=== PATIENT | male | born 1945 | race Caucasian/White ===

== ENCOUNTER → 2017-11-17 | Outpatient (CLI) | payer MEDICARE, OTHER ==
[~2017-11-17] MED LIST: ASPIR 8181 MG PO; FLOMAX0.4 MG PO; HYTRIN PO; LISINOPRIL10 MG PO; MEN'S MULTI-VI1 EACH PO; METOPROLOL SUCC50 MG PO
--- NOTE | 2017-11-17 14:16 | Diagnostic Imaging Report ---
PROCEDURE:US RETROPERITONEAL ( KIDNEY ). COMPARISON:Renal ultrasound from 11/08/2016 INDICATIONS:Cyst Of Kidney TECHNIQUE: Simons-scale and color sonographic images of the bilateral kidneys and bladder where obtained in transverse and longitudinal planes. FINDINGS: RIGHT KIDNEY: 11.2 cm, cortex 2.2 cm Cysts: None Solid masses: None Stones: None Hydronephrosis: None Echogenicity: Normal LEFT KIDNEY: 11.2 cm, cortex 2.1 cm Cysts: A simple cyst in the right superior pole measures 3.3 x 2.8 x 2.3 (previously 2.7 x 2.5 cm). Another simple cyst in the left superior pole measures 2.6 x 2.0 x 2.4 cm (previously 1.0 x 1.1 x 1.4 cm) Solid masses: None Stones: None Hydronephrosis: None Echogenicity: Normal Bladder: Unremarkable Prostate: No prostate gland is visualized. CONCLUSION: Simple left renal cysts, one of which is larger than before. No solid components or septations. Dictated by: Keith Garay M.D. on 11/17/2017 at 14:21 Electronically approved by: Keith Garay M.D. on 11/17/2017 at 14:21
== END ==
LOC: US 12:56
PROVIDERS: ATTEND Urology
DX: N28.1 Cyst of kidney, acquired (principal)
CPT/HCPCS: 76770

== ENCOUNTER → 2018-10-01 | Outpatient (CLI) | payer MEDICARE, OTHER ==
--- NOTE | 2018-10-01 17:03 | Diagnostic Imaging Report ---
EXAM: Renal Ultrasound INDICATION: ^CYST OF KIDNEY COMPARISON: Renal ultrasound 11/17/2017 TECHNIQUE: Transverse and longitudinal images of the kidneys and bladder were obtained. FINDINGS: Right Kidney: Size: 11.5 cm, right renal cortex 1.8 cm. Appearance: Normal echogenicity. Collecting system: No hydronephrosis Stones: None Cyst/Mass: None Left Kidney: Size: 11.3 cm, left renal cortex 1.7 cm. Appearance: Normal echogenicity. Collecting system: No hydronephrosis Stones: None Cyst/Mass: 3.1 x 2.8 x 2.8 cm cystic, anechoic lesion in the superior aspect (previously measured 3.3 x 2.8 x 2.3 cm). Bladder: No focal lesions. Ureteral jets were not visualized. IMPRESSION: 1. Normal bilateral renal size and echogenicity. No stones, hydronephrosis or obstruction. 2. Relatively stable size and appearance of 3.1 cm simple cyst in the superior pole of the left kidney. Signed by: Dr. Milton Cox M.D. on 10/01/2018 5:00 PM
== END ==
LOC: US 15:30
PROVIDERS: ATTEND Urology
DX: N28.1 Cyst of kidney, acquired (principal)
CPT/HCPCS: 76770

== ENCOUNTER 2018-11-03 05:00 | Inpatient (IN) | payer MEDICARE, OTHER ==
--- NOTE | 2018-11-02 10:17 | Diagnostic Imaging Report ---
EXAMINATION: CHEST 2 VIEWS INDICATION: Pre-operative COMPARISON: None FINDINGS: TUBES and LINES: None. LUNGS: The lung volumes are normal. No focal consolidation or pulmonary edema. PLEURA: No pleural effusion or pneumothorax. HEART AND MEDIASTINUM: The cardiomediastinal silhouette is normal in size and contour. BONES AND SOFT TISSUES: No acute fracture or dislocation. Mild degenerative changes of the visualized spine. UPPER ABDOMEN: No free air under the diaphragm. IMPRESSION: No focal pneumonia or pulmonary edema. Signed by: Daren Finley MD on 11/02/2018 10:12 AM
[2018-11-02 11:24] LABS: ANION GAP 11.9 mmol/L (8-16); CALCIUM 8.8 mg/dL (8.4-10.2); CREATININE, SERUM 1.34 mg/dL (0.72-1.25); POTASSIUM 3.9 mmol/L (3.5-5.1)
[2018-11-02 11:26] LABS: BASOPHILS % 0.3 % (0.0-1.0); EOSINOPHILS # (AUTO) 0.2 (0.0-0.4); HEMATOCRIT 40.6 % (38.2-49.6); HEMOGLOBIN 12.9 g/dL (14.0-18.0); LYMPHOCYTES # (AUTO) 1.8 (1.0-3.2); LYMPHOCYTES % 22.6 % (18.0-39.1); MEAN CORPUSCULAR HEMOGLOBIN 28.5 pg (28-32); MEAN CORPUSCULAR HGB CONC 31.8 g/dL (31-35); MEAN CORPUSCULAR VOLUME 89.6 fL (81-99); MONOCYTES # (AUTO) 0.6 (0.2-0.8); MONOCYTES % 7.5 % (4.4-11.3); NEUTROPHILS # (AUTO) 5.2 (2.1-6.9); NEUTROPHILS % 66.2 % (38.7-80.0); PLATELET COUNT 210 x10e3/uL (140-360); RED BLOOD COUNT 4.53 x10e6/uL (4.3-5.7); RED CELL DISTRIBUTION WIDTH 13.8 % (11.7-14.4)
[~2018-11-03] VITALS: Ht 170.2 cm; Wt 124.7 kg
[~2018-11-03 05:00] MED LIST changes: +LASIX40 MG PO; +LISINOPRIL40 MG PO
--- OUTSIDE RECORDS SUMMARY | 2018-11-03 05:12 | XMS REPORT ---
[facility] Address Unknown Phone Unavailable Care Team Providers Care Dietitian Chief Name Role Phone FAMILIA LEVIN Unavailable Unavailable Problems This patient has no known problems. Allergies, Adverse Reactions, Alerts This patient has no known allergies or adverse reactions. Medications This patient has no known medications. Results Test Description Test Time Test Comments Text Results Atomic Results Result Comments CHEST 2 VIEWS 2018-11-02 10:12:00 [place] [address] Patient Name: ELI DE LEÓN MR #: [id number] : 1945 Age/Sex: 73/M Req #: [id number] [facility] [place] Ordered by: FAMILIA LEVIN MD Report #: [id number] Location: OR Room/Bed: Procedure: [id number] DX/CHEST 2 VIEWS Exam Date: 11/02/18 Exam Time: 950 REPORT STATUS: Signed EXAMINATION: CHEST 2 VIEWS INDICATION: Pre-operative COMPARISON: None FINDINGS: TUBES and LINES: None. LUNGS: The lung volumes are normal. No focal consolidation or pulmonary edema. PLEURA: No pleural effusion or pneumothorax. HEART AND MEDIASTINUM: The cardiomediastinal silhouette is normal in size and contour. BONES AND SOFT TISSUES: No acute fracture or dislocation. Mild degenerative changes of the visualized spine. UPPER ABDOMEN: No free air under the diaphragm. IMPRESSION: No focal pneumonia or pulmonary edema. Signed by: Olesya Bains MD on 11/02/2018 10:12 AM Dictated By: OLESYA BAINS MD 1012 Transcribed By: JOÃO on 11/02/18 1012 COPY TO: FAMILIA LEVIN MD RENAL RETROPERITONEAL COMP 2018-10-01 16:58:00 [place] [address] Patient Name: ELI DE LEÓN MR #: [id number] : 1945 Age/Sex: 73/M Req #: [id number] Adm Physician: Ordered by: FAMILIA LEVIN MD Report #: [id number] Location: Room/Bed: Procedure: [id number] US/US RENAL RETROPERITONEAL COMP Exam Date: 10/01/18 Exam Time: 1616 REPORT STATUS: Signed EXAM: Renal Ultrasound INDICATION: CY ST OF KIDNEY COMPARISON: Renal ultrasound 11/17/2017 TECHNIQUE: Transverse and longitudinal images of the kidneys and bladder were obtained. FINDINGS: Right Kidney: Size: 11.5 cm, right renal cortex 1.8 cm. Appearance: Normal echogenicity. Collecting system: No hydronephrosis Stones: None Cyst/Mass: None Left Kidney: Size: 11.3 cm, left renal cortex 1.7 cm. Appearance: Normal echogenicity. Collecting system: No hydronephrosis Stones: None Cyst/Mass: 3.1 x 2.8 x 2.8 cm cystic, anechoic lesion in the superior aspect (previously measured 3.3 x 2.8 x 2.3 cm). Bladder: No focal lesions. Ureteral jets were not visualized. IMPRESSION: 1. Normal bilateral renal size and echogenicity. No stones, hydronephrosis or obstruction. 2. Relatively stable size and appearance of 3.1 cm simple cyst in the superior pole of the left kidney. Signed by: Dr. Gwen Cox M.D. on 10/01/2018 5:00 PM Dictated By: GWEN LUCIANO MD 99 Transcribed By: JOÃO on 10/01/181699 COPY TO: FAMILIA LEVIN MD US RENAL RETROPERITONEAL COMP 2017-11-17 14:21:00 [place] [address] Patient Name: ELI DE LEÓN MR #: [id number] : 1945 Age/Sex: 72/M Req #: [id number] Adm Physician: Ordered by: FAMILIA LEVIN MD Report #: [id number] Location: Room/Bed: Procedure: [id number] US/US RENAL RETROPERITONEAL COMP Exam Date: Exam Time: REPORT STATUS: Signed PROCEDURE: US RETROPERITONEAL ( KIDNEY ). COMPARISON: Renal ultrasound from 11/08/2016 INDICATIONS: Cyst Of Kidney TECHNIQUE: Simons-scale and color sonographic images of the bilateral kidneys and bladder where obtained in transverse and longitudinal planes. FINDINGS: RIGHT KIDNEY: 11.2 cm, cortex 2.2 cm Cysts: None Solid masses: None Stones: None Hydronephrosis: None Echogenicity: Normal LEFT KIDNEY: 11.2 cm, cortex 2.1 cm Cysts: A simple cyst in the right superior pole measures 3.3 x 2.8 x 2.3 (previously 2.7 x 2.5 cm). Another simple cyst in the left superior pole measures 2.6 x 2.0 x 2.4 cm (previously 1.0 x 1.1 x 1.4 cm) Solid masses: None Stones: None Hydronephrosis: None Echogenicity: Normal Bladder: Unremarkable Prostate: No prostate gland is visualized. CONCLUSION: Simple left renal cysts, one of which is larger than before. No solid components or septations. Dictated by: Ventura Garay M.D. on 11/17/2017 at 14:21 Electronically approved by: Ventura Garay M.D. on 11/17/2017 at 14:21 Dictated By: VENTURA GARAY MD 1421 Transcribed By: JUAQUIN on 0 11/17/17 1421 COPY TO: FAMILIA LEVIN MD
[2018-11-03] MEDS ORDERED: GENTAMICIN 80MG/NS 100 ML 200 ML IV ONE (05:41)
[2018-11-03] MEDS ORDERED: CEFTRIAXONE SOD 1 GM/NS 50 ML 100 ML IV ONE (05:41)
[2018-11-03] MEDS ORDERED: B&O 60MG R/S 60 MG SUPP PR ONE (06:44)
[2018-11-03] MEDS ORDERED: IOPAMIDOL 610MG/1ML 300 MG/ML VIAL IV ONE (06:44)
[2018-11-03] MEDS ORDERED: CEFTRIAXONE SOD 1 GM/NS 50 ML 50 ML IV SCH (10:30)
[2018-11-03] MEDS ORDERED: NALOXONE HCL INJ 0.4 MG/ML AMP IV PRN (10:30)
[2018-11-03] MEDS ORDERED: ACETAMINOPHEN/CODEINE 300MG - 30MG TAB PO PRN (10:30)
[2018-11-03] MEDS ORDERED: MORPHINE SULFATE 1 MG/ML 30ML PCA IV PRN (10:30)
[2018-11-03] MEDS ORDERED: ONDANSETRON HCL INJ 2MG/ML 2ML 2 MG/ML VIAL IV PRN (10:30)
[2018-11-03] MEDS ORDERED: DIPHENHYDRAMINE HCL 25 MG CAP PO PRN (10:30)
[2018-11-03] MEDS ORDERED: B&O 60MG R/S 60 MG SUPP PR PRN (10:45)
--- NOTE | 2018-11-03 10:55 | NUR ---
RECEIVED REPORT FROM [facility] IN PACU AWAITING FOR PT TO ARRIVE TO FLOOR
[2018-11-03 11:15] VITALS: BP_SYST 147; BP_SYST 148; BP_DIAS 76
--- NOTE | 2018-11-03 11:15 | NUR ---
RECEIVED PT TO FLOOR AA0X3. IS AT BEDSIDE PT IS IN NO S.S DISTRESS, REPORTS SPAMS TO BLADDERS THAT AT THIS TIME ARE TOLERABLE PAIN MEDICATION OFFERED. PT DENIES NEEDING REEDER ON TRACTION AND ON CBI DRAINING PINK/RED URINE. RIGHT HAND 20 G PATENT AND INTACT WILL CONTINUE TO MONITOR PT AT THIS TIME SIDE RAILSX2, BED WHEELS LOCKED, CALL LIGHT IS WITHIN EASY REACH INSTRUCTED TO CALL FOR ASSISTANCE IF NEEDED
[2018-11-03] MEDS: D5.45%NS/KCL 20MEQ 1,000 ML IV SCH ×2 (11:54→19:00)
[2018-11-03 12:03] VITALS: BP 148/76
[2018-11-03] MEDS: PHENAZOPYRIDINE HCL 100 MG TAB PO SCH ×2 (13:05→17:06)
[2018-11-03] MEDS ORDERED: MIDAZOLAM HCL 2 MG/2 ML VIAL ONE (14:02)
[2018-11-03] MEDS ORDERED: FENTANYL CITRATE/PF 100MCG/2 ML INJ ONE (14:02)
[2018-11-03 14:15] LABS: BASOPHILS % 0.1 % (0.0-1.0); HEMATOCRIT 45.8 % (38.2-49.6); HEMOGLOBIN 14.1 g/dL (14.0-18.0); LYMPHOCYTES # (AUTO) 0.8 (1.0-3.2); LYMPHOCYTES % 7.4 % (18.0-39.1); MEAN CORPUSCULAR HEMOGLOBIN 27.9 pg (28-32); MEAN CORPUSCULAR HGB CONC 30.8 g/dL (31-35); MEAN CORPUSCULAR VOLUME 90.5 fL (81-99); MONOCYTES # (AUTO) 0.2 (0.2-0.8); MONOCYTES % 1.8 % (4.4-11.3); NEUTROPHILS # (AUTO) 10.2 (2.1-6.9); PLATELET COUNT 218 x10e3/uL (140-360); RED BLOOD COUNT 5.06 x10e6/uL (4.3-5.7); RED CELL DISTRIBUTION WIDTH 13.8 % (11.7-14.4)
[2018-11-03 14:39] LABS: ANION GAP 13.5 mmol/L (8-16); CREATININE, SERUM 1.3 mg/dL (0.72-1.25); POTASSIUM 4.5 mmol/L (3.5-5.1)
[2018-11-03] MEDS ORDERED: SEVOFLURANE INHAL SOLN 250 ML PEN BTL ONE (14:57)
[2018-11-03] MEDS ORDERED: ONDANSETRON HCL INJ 2MG/ML 2ML 2 MG/ML VIAL ONE (14:57)
[2018-11-03] MEDS ORDERED: NEOSTIGMINE 5 MG/5ML SYR ONE (14:57)
[2018-11-03] MEDS ORDERED: PROPOFOL IV EMULSION 10 MG/ML 20 ML VIAL ONE (14:57)
[2018-11-03] MEDS ORDERED: DEXAMETHASONE SOD PHOS INJ 4 MG/ML VIAL ONE (14:57)
[2018-11-03] MEDS ORDERED: GLYCOPYRROLATE INJ 1MG/ 5 ML SYR ONE (14:57)
[2018-11-03] MEDS ORDERED: PHENYLEPHRINE HCL 1% 10 MG/ML VIAL ONE (14:57)
[2018-11-03] MEDS ORDERED: EPHEDRINE SULFATE INJ 50 MG/10 ML SYR ONE (14:57)
[2018-11-03] MEDS ORDERED: LIDOCAINE HCL 2% LOCAL INJ 5 ML SDV VIAL INJ ONE (14:57)
[2018-11-03] MEDS ORDERED: ROCURONIUM BROMIDE 10 MG/ML 5ML VIAL ONE (14:57)
[2018-11-03] MEDS: OXYBUTYNIN CHLORIDE 5 MG TAB PO SCH ×2 (15:03→20:44)
[2018-11-03 16:05] VITALS: BP 135/73
[2018-11-03] MEDS: DOCUSATE SODIUM 100 MG CAP PO SCH (17:06)
[2018-11-03 19:58] VITALS: BP 113/70
[2018-11-03 20:44] VITALS: BP 113/70
[2018-11-04 00:17] VITALS: BP 94/51
[2018-11-04] MEDS: D5.45%NS/KCL 20MEQ 1,000 ML IV SCH (02:24)
[2018-11-04 06:20] LABS: BASOPHILS % 0.3 % (0.0-1.0); EOSINOPHILS # (AUTO) 0.2 (0.0-0.4); EOSINOPHILS % 1.6 % (0.0-6.0); HEMATOCRIT 39.5 % (38.2-49.6); HEMOGLOBIN 12.2 g/dL (14.0-18.0); LYMPHOCYTES # (AUTO) 1.7 (1.0-3.2); LYMPHOCYTES % 13.6 % (18.0-39.1); MEAN CORPUSCULAR HEMOGLOBIN 28.1 pg (28-32); MEAN CORPUSCULAR HGB CONC 30.9 g/dL (31-35); MONOCYTES # (AUTO) 0.9 (0.2-0.8); MONOCYTES % 6.7 % (4.4-11.3); NEUTROPHILS # (AUTO) 9.8 (2.1-6.9); NEUTROPHILS % 77.2 % (38.7-80.0); PLATELET COUNT 187 x10e3/uL (140-360); RED BLOOD COUNT 4.34 x10e6/uL (4.3-5.7); RED CELL DISTRIBUTION WIDTH 13.9 % (11.7-14.4)
[2018-11-04 06:45] LABS: ANION GAP 9.4 mmol/L (8-16); CALCIUM 8.4 mg/dL (8.4-10.2); CREATININE, SERUM 1.21 mg/dL (0.72-1.25); POTASSIUM 4.4 mmol/L (3.5-5.1)
--- NOTE | 2018-11-04 07:10 | NUR ---
PT RESTING IN BED AA0X3 PT IS IN NO S/S OF DISTRESS, DENIES PAIN PT CBI RUNNING . CLEAR ORANGE URINE NOTED ON BAG CBI RUNNING AT SLOW PACE IV TO THE HAND PATENT DRY AND INTACT WILL CONTINUE TO MONITOR PT CLOSELY\ SIDE RAILSX2 ,BED WHEELS LOCKED ,CALL LIGHT IS WITHIN EASY REACH INSTRUCTED TO CALL FOR ASSISTANCE IF NEEDED
[2018-11-04 07:49] VITALS: BP 100/58
[2018-11-04 08:04] VITALS: BP 100/58
[2018-11-04] MEDS: PHENAZOPYRIDINE HCL 100 MG TAB PO SCH (08:04)
[2018-11-04] MEDS: DOCUSATE SODIUM 100 MG CAP PO SCH (08:04)
[2018-11-04] MEDS: OXYBUTYNIN CHLORIDE 5 MG TAB PO SCH (08:04)
[2018-11-04] MEDS ORDERED: ONDANSETRON HCL 4 MG ORAL DISINTEGRATING TAB PO PRN (10:00)
[2018-11-04] MEDS ORDERED: TYLENOL # 31 EA PO (10:24)
[2018-11-04] MEDS ORDERED: LEVAQUIN500 MG PO (10:24)
[2018-11-04] MEDS ORDERED: OXYBUTYNIN CHLOR5 MG PO (10:24)
--- NOTE | 2018-11-04 10:45 | NUR ---
DC INSTRUCTIONS AND PRESCRIPTIONS GIVEN. PT VERBALIZED UNDERSTANDING IV DC PRESSURE DRESSING APPLIED AND TAPED REEDER DC FROM IRRIGATION PLUG APPLIED PT GIVEN SUPPLIES TO IRRIGATE PRN AT HOME AND LEG BAG IF NEEDED UNDERSTANDS TO FOLLOW UP WITH MD LEVIN IN ONE MONTH PT IS NOW OFF UNIT TO HOME VIA WHEEL CHAIR
--- NOTE | 2018-11-04 15:07 | Discharge Summary ---
JIG AND FIXTURE MAKER: Dr. Trung Kearns. FINAL DIAGNOSIS: Benign prostatic hyperplasia with chronic renal insufficiency status post cystoscopy, dilatation and TURP. Procedure done by Dr. Trung Kearns. HOSPITAL COURSE: The patient is a 73-year-old male, multiple chronic medical problem, obesity with enlarged prostate, now status post procedures as mentioned. Please review the operative note. The patient is stable. He is going to go home today with a Rasmussen catheter. The patient was discharged home to resume his home medication, hold off aspirin or Plavix until everything is healed, Rasmussen catheter out. Discussed with the patient at length. He will take Levaquin 250 mg daily for seven days and Tylenol No. 3 p.r.n. for pain. Resume metoprolol. The patient is stable, discharged home today with Rasmussen catheter. The patient to follow with Dr. Trung Kearns as instructed. MD EMBER Delacruz/KISHOR /[id number]
--- NOTE | 2019-01-12 06:38 | Operative Report ---
DATE OF PROCEDURE: 11/03/2018 SURGEON: Trung Kearns MD PREOPERATIVE DIAGNOSES: 1. Obstructive benign prostatic hyperplasia. 2. Chronic renal insufficiency. POSTOPERATIVE DIAGNOSES: 1. Obstructive benign prostatic hyperplasia. 2. Chronic renal insufficiency. 3. Urethral stricture disease. OPERATIONS PERFORMED: 1. Cystourethroscopy with calibration and dilation of urethral stricture (separate procedure performed with separate scope for the diagnosis of the stricture). 2. Cystourethroscopy with bilateral ureteral catheterization and retrograde ureteropyelography (separate procedure performed to evaluate the upper tract in light of the chronic renal insufficiency. 3. Interpretation of retrograde ureteropyelography. 4. Cystourethroscopy with transurethral resection of the prostate (separate staged procedure performed with the plasma button electrode). ANESTHESIA: General. COMPLICATIONS: None. CLINICAL SUMMARY: Phu Guido is a 73-year-old male with a very large prostate. The patient has undergone a previous attempt at UroLift implantation. This was followed by an emergent partial transurethral resection of the prostate utilizing the vaporizing electrode. The patient is brought to the operating room for additional TURP. It is possible his prostate is large enough to warrant additional yet additional TURP procedures in the future. He is aware of the risks of bleeding, infection, injury to adjacent structures, incontinence, impotence, retrograde ejaculation, need for additional procedures and elected to proceed. OPERATIVE PROCEDURE IN DETAIL: Informed consent was verified. Phu Guido was properly identified, taken to the operating room, placed on the cystoscopy table in supine position. Anesthesia was uneventfully begun. The patient was then carefully and gently repositioned in dorsal lithotomy position with all pressure points well padded. His genitalia were prepared and draped in usual sterile fashion. The cystoscope sheath with the visual obturator in place was atraumatically inserted into the patient's urethra, it was guided down the urethra, which was significant for panurethral blanching and scarring and wide caliber strictures throughout the patient's urethra. The narrowest point seemed to be at the bulbar region, where we dilated across this region with the visual obturator into the level of the cystoscope sheath. We went to the patient's prostate bed, which was significant for severely obstructing bilobar prostatic hypertrophy with kissing lateral lobes. There was sign of previous transurethral resection, but this was more proximal and overwhelmed of the patient's prostate size. We entered the patient's bladder and drained it. Panendoscopy revealed at least grade 2 trabeculations, most likely grade 3 trabeculations throughout the bladder. There were no suspicious lesions noted and there were no tumors and no stones. An 8-Kinyarwanda catheter was used to cannulate each ureter and retrograde ureteropyelogram was performed. Interpretation of retrograde ureteropyelography contrast was instilled in a retrograde fashion bilaterally. No tumors, no stones, no diverticula. Unobstructed drainage was observed bilaterally fluoroscopically. 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 The cystoscope was withdrawn. We gently dilated with Lucas sounds to 28-Kinyarwanda. We then atraumatically placed a 28-Kinyarwanda resectoscope sheath. A vaporization of the prostate was then carried out from the bladder neck tube, but never passed the verumontanum. We resected for over an hour and then stopped. Excellent hemostasis was obtained. The resectoscope was withdrawn. Rasmussen catheter was placed. This catheter was placed in continuous bladder irrigation with clear efflux. Belladonna opium suppositories were placed revealing a large at least 40 g prostate, smooth, nonfluctuant without any nodules. The prostatic sizing by digital rectal examination on today's examination is very misleading compared to the actual prostate size we are aware the patient possesses. The patient was uneventfully reversed from anesthesia and taken to recovery room in stable condition. We will plan on routine postoperative care and of course lifelong urological followup. MD CRIS Mooney/KISHOR /[id number]
== END 2018-11-04 10:42 | disposition home or self-care (01) | DRG 714 ==
LOC: OR 05:00 → PACU V 10:27 → MED/SURG 11:06
PROVIDERS: ADMIT Urology; ATTEND Urology
PROC: 0T7D8ZZ Dilation of Urethra, Via Natural or Artificial Opening Endoscopic (ICD-10-PCS; 2018-11-03)
PROC: 0VB08ZZ Excision of Prostate, Via Natural or Artificial Opening Endoscopic (ICD-10-PCS; principal; 2018-11-03 07:00)
PROC: 0T788ZZ Dilation of Bilateral Ureters, Via Natural or Artificial Opening Endoscopic (ICD-10-PCS; 2018-11-03 07:00)
PROC: BT141ZZ Fluoroscopy of Kidneys, Ureters and Bladder using Low Osmolar Contrast (ICD-10-PCS; 2018-11-03 07:00)
DX: N40.1 Benign prostatic hyperplasia with lower urinary tract symptoms (principal); R33.8 Other retention of urine; I35.0 Nonrheumatic aortic (valve) stenosis; I12.9 Hypertensive chronic kidney disease with stage 1 through stage 4 chronic kidney disease, or unspecified chronic kidney disease; N18.9 Chronic kidney disease, unspecified
CPT/HCPCS: 36415; 71046; 74420; 80048; 83735; 85025; 93005; J0696; J1100; J1580; J2001; J2250; J2370; J2405; J3010

== ENCOUNTER → 2020-03-29 | Outpatient (CLI) | payer MEDICARE, OTHER ==
[~2020-03-29] MED LIST changes: +LEVAQUIN500 MG PO; +OXYBUTYNIN CHLOR5 MG PO; +PLAVIX75 MG PO; +TYLENOL # 31 EA PO
== END ==
LOC: US 13:49
PROVIDERS: ATTEND Urology
DX: N28.1 Cyst of kidney, acquired (principal)
CPT/HCPCS: 76770

== ENCOUNTER → 2021-04-05 | Outpatient (CLI) | payer MEDICARE, OTHER | LOC: US 12:12 | PROVIDERS: ATTEND Urology | DX: N28.1 Cyst of kidney, acquired (principal) | CPT/HCPCS: 76770 ==

== ENCOUNTER → 2023-02-18 | Outpatient (REF) | payer MEDICARE, OTHER | LOC: US 12:15 | PROVIDERS: ATTEND Urology | DX: N28.1 Cyst of kidney, acquired (principal) | CPT/HCPCS: 76770 ==

== ENCOUNTER → 2024-12-13 | Outpatient (REF) | payer MEDICARE, OTHER | LOC: US 12:32 | PROVIDERS: ATTEND Urology | DX: N28.1 Cyst of kidney, acquired (principal) | CPT/HCPCS: 76770; 76857 ==